=== PATIENT | female | born 1945 | race Caucasian/White ===

== ENCOUNTER 2021-09-29 04:23 | Day surgery (SDC) | payer OTHER ==
[2021-09-26 13:48] VITALS: BMI 23.3
[2021-09-29 10:54] VITALS: TEMP 97.1
[2021-09-29 11:24] VITALS: BP 135/59; PULSE 58
== END 2021-09-29 12:15 | disposition home or self-care (01) ==
LOC: JASU-ENDO 04:23
PROVIDERS: ATTEND Internal Medicine Gastroenterology
PROC: 0DBL8ZX Excision of Transverse Colon, Via Natural or Artificial Opening Endoscopic, Diagnostic (ICD-10-PCS; principal; 2021-09-29 09:15)
DX: Z12.11 Encounter for screening for malignant neoplasm of colon (principal); D12.3 Benign neoplasm of transverse colon; K64.8 Other hemorrhoids; K63.89 Other specified diseases of intestine; I10 Essential (primary) hypertension; E11.9 Type 2 diabetes mellitus without complications
CPT/HCPCS: 88305-TC

== ENCOUNTER 2024-07-23 16:27 | Inpatient (IN) | payer OTHER ==
[2024-07-23 18:45] LABS: ABSOLUTE IMMATURE GRANULOCYTES 0.01 x10^3/uL (0.0-0.031); BASOPHILS # 0.04 x10^3/uL (0.01-0.08); EOSINOPHIL % 6.4 % (0.7-5.8); EOSINOPHILS # 0.35 x10^3/uL (0.04-0.36); HEMATOCRIT 40.4 % (34.1-44.9); HEMOGLOBIN 12.9 g/dL (11.2-15.7); MCHC 31.9 g/dl (32.2-35.5); MEAN CELL VOLUME 89.6 fl (79.4-94.8); MEAN PLT VOLUME 11.5 fl (9.4-12.3); MONOCYTE # 0.48 x10^3/uL (0.24-0.86); MONOCYTE % 8.8 % (4.7-12.5); PLATELET COUNT # 157 x10^3/uL (182-369); RDW 15.1 % (12.4-16.6)
[2024-07-23 18:52] LABS: PROTHROMBIN TIME (PATIENT) 10.9 SEC (9.7-13.0)
[2024-07-23 18:55] LABS: ACTIVATED PTT 30.9 SECONDS (25.2-36.5)
[2024-07-23 19:11] LABS: POTASSIUM 3.9 mmol/L (3.5-5.1)
[2024-07-23 19:15] LABS: ALBUMIN 3.9 g/dl (3.4-5.0); BLOOD UREA NITROGEN 15.3 mg/dL (7-18)
[2024-07-23 19:16] LABS: MAGNESIUM 2.5 mg/dL (1.8-2.4)
[2024-07-23 19:19] LABS: CREATININE 0.8 mg/dL (0.55-1.3)
[2024-07-23 19:20] LABS: BILIRUBIN,TOTAL 0.3 mg/dL (0.2-1); TOT PROT 7.9 g/dl (6.4-8.2)
[2024-07-23 20:09] LABS: HCV DIAGNOSTIC IN-HOUSE W/RFLX NON-REACTIVE (NONREACTIVE); HIV INTERPRETATION NEGATIVE (NEGATIVE)
[2024-07-23 21:15] LABS: URINE APPEARANCE CLEAR; URINE BILIRUBIN NEGATIVE (NEGATIVE); URINE COLOR YELLOW; URINE GLUCOSE (UA) NEGATIVE (NEGATIVE); URINE KETONE NEGATIVE (NEGATIVE); URINE LEUK ESTERASE NEGATIVE (NEGATIVE); URINE NITRITE NEGATIVE (NEGATIVE); URINE PROTEIN NEGATIVE (NEGATIVE); URINE UROBILINOGEN 0.2 mg/dL (0.2-1.0)
[2024-07-23] MEDS ORDERED: ACETAMINOPHEN 325 MG TABLET (FP) PO PRN (21:23)
[2024-07-23] MEDS ORDERED: DOCUSATE SODIUM 100 MG CAPSULE (FP) PO PRN (21:23)
[2024-07-24 00:27] VITALS: BMI 23.1
[2024-07-24] MEDS: INSULIN ASPART SLIDING SCALE (NOVOLOG) 1 VIAL SQ SCH (01:12)
[2024-07-24 08:07] LABS: HEMATOCRIT 37.8 % (34.1-44.9); HEMOGLOBIN 12.2 g/dL (11.2-15.7); MCHC 32.3 g/dl (32.2-35.5); MEAN CELL VOLUME 88.7 fl (79.4-94.8); MEAN PLT VOLUME 11.8 fl (9.4-12.3); PLATELET COUNT # 153 x10^3/uL (182-369); RDW 14.8 % (12.4-16.6)
[2024-07-24 08:27] LABS: POTASSIUM 4.1 mmol/L (3.5-5.1)
[2024-07-24 08:36] LABS: BLOOD UREA NITROGEN 16.6 mg/dL (7-18); CALCIUM 8.8 mg/dL (8.5-10.1)
[2024-07-24 08:37] LABS: ALBUMIN 3.4 g/dl (3.4-5.0)
[2024-07-24 08:40] LABS: BILIRUBIN,TOTAL 0.4 mg/dL (0.2-1); CREATININE 0.8 mg/dL (0.55-1.3); PHOSPHOROUS 3.1 mg/dL (2.5-4.9); TOT PROT 6.7 g/dl (6.4-8.2)
[2024-07-24] MEDS: amLODIPine BESYLATE 5 MG TABLET (FP) PO SCH (10:09)
[2024-07-24] MEDS: metoPROLOL SUCCINATE 25 MG TAB.SR.24H (FP) PO SCH (21:29)
[2024-07-24] MEDS: HEPARIN NA (PORCINE) 5,000 UNITS/ML 1ML VIAL SQ SCH (21:29)
[2024-07-24] MEDS: FAMOTIDINE 20 MG TABLET PO SCH (21:29)
[2024-07-25] MEDS: INSULIN ASPART SLIDING SCALE (NOVOLOG) 1 VIAL SQ SCH (11:50)
[2024-07-25 12:26] LABS: HEPATITIS B SURFACE AG MATERN NON-REACTIVE (NONREACTIVE)
[2024-07-25] MEDS: DEXTROSE 5%-NORMAL SALINE 1,000 ML IV SCH (12:38)
[2024-07-25] MEDS: ASPIRIN COATED 81 MG TABLET.EC PO SCH (22:01)
[2024-07-26] MEDS: LIDOCAINE 5% TOPICAL PATCH TP ONE (05:02)
[2024-07-26] MEDS: metoPROLOL SUCCINATE 25 MG TAB.SR.24H (FP) PO SCH (22:16)
[2024-07-26] MEDS: LIDOCAINE PATCH REMOVAL MC SCH (22:16)
[2024-07-27 08:25] LABS: INR 1.02 (0.83-1.09); PROTHROMBIN TIME (PATIENT) 11.1 SEC (9.7-13.0)
[2024-07-27 08:33] LABS: POTASSIUM 3.9 mmol/L (3.5-5.1)
[2024-07-27 08:37] LABS: ALBUMIN 3.6 g/dl (3.4-5.0); BLOOD UREA NITROGEN 17.3 mg/dL (7-18)
[2024-07-27 08:40] LABS: CREATININE 0.9 mg/dL (0.55-1.3)
[2024-07-27 08:42] LABS: BILIRUBIN,TOTAL 0.4 mg/dL (0.2-1); TOT PROT 7.4 g/dl (6.4-8.2)
[2024-07-27 08:46] LABS: BASOPHILS # 0.06 x10^3/uL (0.01-0.08); EOSINOPHIL % 10.2 % (0.7-5.8); EOSINOPHILS # 0.41 x10^3/uL (0.04-0.36); HEMATOCRIT 41.5 % (34.1-44.9); MCHC 31.3 g/dl (32.2-35.5); MEAN CELL VOLUME 89.8 fl (79.4-94.8); MEAN PLT VOLUME 11.7 fl (9.4-12.3); MONOCYTE # 0.51 x10^3/uL (0.24-0.86); MONOCYTE % 12.7 % (4.7-12.5); PLATELET COUNT # 159 x10^3/uL (182-369)
[2024-07-27] MEDS: LIDOCAINE 5% TOPICAL PATCH TP ONE (21:47)
[2024-07-28] MEDS: LIDOCAINE PATCH REMOVAL MC SCH (09:43)
[2024-07-28] MEDS ORDERED: MIDAZOLAM HCL 2 MG/2 ML SINGLE DOSE VIAL ONE (12:35)
[2024-07-28 13:01] VITALS: TEMP 98
[2024-07-28 14:00] VITALS: PULSE 52
[2024-07-28 14:06] LABS: IG G QN IMMUNOGLOBULIN 1306 mg/dL (586-1602); IGG SUBCLASS 1 518 mg/dL (248-810); IGG SUBCLASS 2 585 mg/dL (130-555); IGG SUBCLASS 3 30 mg/dL (15-102)
[2024-07-28 14:58] VITALS: BP 126/56; RESP 18
[2024-07-28 23:07] LABS: CARCINOEMBRYONIC ANTIGEN 3.1 ng/mL (0.0-4.7)
== END 2024-07-28 16:20 | disposition home or self-care (01) | DRG 948 ==
LOC: JER 16:27 → JERBED 17:29 → J7W 07-24 01:12
PROVIDERS: ADMIT Internal Medicine; ATTEND Family Medicine
PROC: 0DJ08ZZ Inspection of Upper Intestinal Tract, Via Natural or Artificial Opening Endoscopic (ICD-10-PCS; principal; 2024-07-28 13:45)
DX: R74.01 Elevation of levels of liver transaminase levels (principal); I10 Essential (primary) hypertension; I25.10 Atherosclerotic heart disease of native coronary artery without angina pectoris; E78.5 Hyperlipidemia, unspecified; K21.9 Gastro-esophageal reflux disease without esophagitis; R74.8 Abnormal levels of other serum enzymes
CPT/HCPCS: 36415; 71045-TC-FY; 74183-TC; 76705-TC; 80053; 81003; 82105; 82378; 82550; 82784; 82787; 82962; 82977; 83516; 83690; 83735; 83883; 84100; 84484; 85025; 85027; 85610; 85730; 86038; 86301; 86704; 86708; 86803; 86850; 86900; 86901; 87086; 87340; 87389; 87517; 93005; 93010; 99285-25; J1644